=== PATIENT | female | born 1955 | race Caucasian/White ===

== ENCOUNTER → 2018-06-28 | Outpatient (CLI) | payer OTHER ==
[~2018-06-28] VITALS: Ht 154.9 cm; Wt 68.0 kg
[~2018-06-28] MED LIST: CHILDREN'S ASPI81 M1 PO; EVENING PRIMRO1 EACH PO; UNICOMPLEX M TA1 TA1 PO; VITAMIN E400 UNIT PO
== END | disposition home or self-care (01) ==
LOC: GI 08:58
DX: Z12.11 Encounter for screening for malignant neoplasm of colon (principal); K64.8 Other hemorrhoids; Z96.642 Presence of left artificial hip joint; Z98.890 Other specified postprocedural states; Z88.2 Allergy status to sulfonamides; Z79.899 Other long term (current) drug therapy; Z87.891 Personal history of nicotine dependence; Z79.82 Long term (current) use of aspirin
CPT/HCPCS: 62110; 62900